=== PATIENT | female | born 1935 | race Caucasian/White ===

== ENCOUNTER 2018-12-24 04:46 | Inpatient (IN) ==
[2018-12-24 05:51] LABS: Basophils # 0.1 K/mcL (0.0-0.2); Basophils % 0.9 %; Eosinophils # 0.1 K/mcL (0.0-0.6); Eosinophils % 1.4 %; Hematocrit 43.3 % (35.3-44.9); Hemoglobin 14.6 g/dL (11.5-15.4); Immature Granulocytes % 0.4 % (0-4); Lymphocytes # 3.8 K/mcL (0.6-4.6); Lymphocytes % 39.1 %; Mean Corpuscular HGB Conc 33.7 g/dL (31.6-35.5); Mean Corpuscular Hemoglobin 28.9 pg (28.0-33.3); Mean Corpuscular Volume 85.7 fL (83.0-100.0); Mean Platelet Volume 11.4 fL (9.4-12.4); Monocytes # 0.7 K/mcL (0.0-1.3); Monocytes % 7.5 %; Platelet Count 272 K/mcL (140-400); Red Blood Count 5.05 M/mcL (3.82-4.97); Red Cell Distribution Width 14.5 % (11.5-14.5); Segmented Neutrophils % 50.7 %; White Blood Count 9.8 K/mcL (4.3-11.1)
[2018-12-24 06:14] LABS: Acetaminophen < 10 mcg/mL (10-20); BUN/Creatinine Ratio 22 (6-26); Blood Urea Nitrogen 24 mg/dL (8-23); Calcium 8.9 mg/dL (8.6-10.3); Carbon Dioxide 25 mEq/L (23-29); Chloride 109 mEq/L (98-107); Chol/HDL Ratio 3.1 (0-4.9); Cholesterol 195 mg/dL (< 200); Ethanol < 10 mg/dL (Less than 10); Glucose 162 mg/dL (70-105); HDL Cholesterol 63 mg/dL (40-59); LDL Cholesterol,Calculated 103 mg/dL (0-99); Osmolality,Calculated 306 (280-300); Potassium 3.8 mEq/L (3.5-5.1); Salicylate < 2.5 mg/dL (15.0-30.0); Sodium 144 mEq/L (136-145); Triglycerides 146 mg/dL (< 150); eGFR For African Americans 58 (> 60); eGFR For Non-African Americans 48 (> 60)
[2018-12-24 06:27] LABS: Estimated Average Glucose 183 mg/dl
[2018-12-24 06:31] LABS: Bilirubin,Urine Negative (Negative); Blood,Urine Negative (Negative); Clarity,Urine Clear (Clear); Color,Urine Yellow (Yellow); Glucose,Urine (UA) 100 mg/dL (Normal); Ketones,Urine Negative (Negative); Leukocyte Esterase,Urine Moderate (Negative); Nitrite,Urine Negative (Negative); PH,Urine 6.5 pH Units (5.0-8.0); Protein,Urine Negative (Neg-Trace); Specific Gravity,Urine 1.015 (1.010-1.025); Urobilinogen,Urine Normal (Normal)
[2018-12-24 06:35] LABS: Bacteria,Urine None Seen per hpf (None-Few); Hyaline Casts,Urine None Seen per lpf (None-Few); Squamous Epithelial Cell,Urine Many per lpf (None-Few); WBC,Urine 15-30 per hpf (0-3)
[2018-12-24 06:36] LABS: Amphetamine Screen,Urine Negative ng/mL (Cutoff=1000); Barbiturate Screen,Urine Negative ng/mL (Cutoff=200); Benzodiazepines Screen,Urine Negative ng/mL (Cutoff=200); Cannabinoid Screen,Urine Negative ng/mL (Cutoff = 50); Cocaine Screen,Urine Negative ng/mL (Cutoff= 300); Opiate Screen,Urine Negative ng/mL (Cutoff=300); Phencyclidine Screen,Urine Negative ng/mL (Cutoff=25)
[2018-12-24] MEDS ORDERED: cephALEXin 500 MG CAPSULE PO ONE (07:22)
[2018-12-24 09:14] LABS: Troponin I 1.13 ng/mL (< 0.04)
[2018-12-24 10:04] LABS: INR 0.9; Prothrombin Time 10.7 Seconds (9.4-12.1)
[2018-12-24 10:07] LABS: Activated Partial Thrombo Time 32.1 Seconds (26.0-36.0)
[2018-12-24] MEDS ORDERED: Heparin 25,000 UNIT/250 ML D5W 25,000 UNIT/250 ML IV.SOLN IVC SCH (10:45)
[2018-12-24] MEDS ORDERED: *HR* Heparin 5,000 UNIT/ML VIAL IVP ONE (10:45)
[2018-12-24] MEDS ORDERED: *HR* Heparin 5,000 UNIT/ML VIAL IVP PRN ×2 (10:45)
[2018-12-24] MEDS ORDERED: Acetaminophen 325 MG TABLET PO PRN (10:48)
[2018-12-24] MEDS ORDERED: Ondansetron 4 MG/2 ML VIAL IVP PRN (10:48)
[2018-12-24] MEDS ORDERED: Naloxone 0.4 MG/ML INJ IVP PRN (10:48)
[2018-12-24] MEDS ORDERED: *HR* Dextrose 50 % in Water (Syg) 50 ML SYRINGE IVP PRN (10:48)
[2018-12-24] MEDS ORDERED: Dextrose Gel 15 GM/37.5 ML TUBE PO PRN ×2 (10:48)
[2018-12-24] MEDS ORDERED: D5% in Water 1,000 ML IVC PRN (10:48)
[2018-12-24] MEDS ORDERED: Aspirin 325 MG TABLET PO ONE (12:15)
[2018-12-24] MEDS ORDERED: *HR* LORazepam 2 MG/ML VIAL IVP STA (12:36)
[2018-12-24] MEDS: Insulin LISPRO 300 UNITS/3 ML VIAL SQ SCH ×3 (12:50→20:52)
[2018-12-24] MEDS ORDERED: *HR* LORazepam 2 MG/ML VIAL IVP PRN (15:33)
[2018-12-24 17:01] LABS: Hemoglobin 13.6 g/dL (11.5-15.4); Mean Corpuscular HGB Conc 32.4 g/dL (31.6-35.5); Mean Corpuscular Hemoglobin 28.6 pg (28.0-33.3); Mean Corpuscular Volume 88.4 fL (83.0-100.0); Mean Platelet Volume 11.6 fL (9.4-12.4); Platelet Count 235 K/mcL (140-400); Red Blood Count 4.75 M/mcL (3.82-4.97); Red Cell Distribution Width 14.1 % (11.5-14.5); White Blood Count 10.3 K/mcL (4.3-11.1)
[2018-12-24] MEDS ORDERED: Dexmedetomidine HCl 400 MCG/100 ML MLS IVC SCH (17:15)
[2018-12-24] MEDS: cefTRIAXone 1,000 MG in Water for inj. (sterile) 10 ML IVP SCH (17:35)
[2018-12-24] MEDS: Doxycycline 100 MG in 0.9 % Sodium Chloride Mini Bag 100 ML IVPB SCH ×2 (17:35→19:25)
[2018-12-25 05:28] LABS: BUN/Creatinine Ratio 26 (6-26); Blood Urea Nitrogen 26 mg/dL (8-23); Calcium 8.7 mg/dL (8.6-10.3); Carbon Dioxide 17 mEq/L (23-29); Chloride 109 mEq/L (98-107); Glucose 203 mg/dL (70-105); Magnesium 1.6 mg/dL (1.6-2.6); Osmolality,Calculated 295 (280-300); Potassium 3.6 mEq/L (3.5-5.1); Sodium 137 mEq/L (136-145); eGFR For African Americans > 60 (> 60); eGFR For Non-African Americans 53 (> 60)
[2018-12-25] MEDS: Doxycycline 100 MG in 0.9 % Sodium Chloride Mini Bag 100 ML IVPB SCH ×2 (05:59→17:07)
[2018-12-25 06:47] LABS: Basophils # 0.1 K/mcL (0.0-0.2); Basophils % 0.6 %; Hematocrit 45.2 % (35.3-44.9); Hemoglobin 14.1 g/dL (11.5-15.4); Immature Granulocytes % 0.5 % (0-4); Lymphocytes # 2.2 K/mcL (0.6-4.6); Lymphocytes % 16.5 %; Mean Corpuscular HGB Conc 31.2 g/dL (31.6-35.5); Mean Corpuscular Volume 89.7 fL (83.0-100.0); Mean Platelet Volume 11.2 fL (9.4-12.4); Monocytes # 0.8 K/mcL (0.0-1.3); Monocytes % 6.3 %; Platelet Count 252 K/mcL (140-400); Red Blood Count 5.04 M/mcL (3.82-4.97); Red Cell Distribution Width 14.3 % (11.5-14.5); Segmented Neutrophils % 76.1 %; White Blood Count 13.1 K/mcL (4.3-11.1)
[2018-12-25] MEDS: *HR* LORazepam 2 MG/ML VIAL IVP PRN ×2 (06:57→22:18)
[2018-12-25] MEDS ORDERED: Perflutren Lipid Microsphere 1.3 ML in 0.9 % Sodium Chloride 8.7 ML IVP ONE (07:50)
[2018-12-25] MEDS ORDERED: Perflutren Lipid Microsphere 2 ML VIAL ONE (07:55)
[2018-12-25] MEDS: Insulin LISPRO 300 UNITS/3 ML VIAL SQ SCH ×5 (08:32→21:33)
[2018-12-25] MEDS: Aspirin Enteric Coated 81 MG Tablet PO SCH (08:48)
[2018-12-25] MEDS: cefTRIAXone 1,000 MG in Water for inj. (sterile) 10 ML IVP SCH (08:48)
[2018-12-25] MEDS ORDERED: Aspirin 325 MG TABLET PO SCH (09:00)
[2018-12-25] MEDS ORDERED: Dexmedetomidine HCl 400 MCG/100 ML MLS IVC SCH (14:00)
[2018-12-25] MEDS: *HR* Enoxaparin 60 MG/0.6 ML SYRINGE SQ SCH ×2 (14:12→21:33)
[2018-12-26 02:06] LABS: Basophils # 0.1 K/mcL (0.0-0.2); Basophils % 0.7 %; Hematocrit 40.4 % (35.3-44.9); Immature Granulocytes % 0.5 % (0-4); Lymphocytes # 2.1 K/mcL (0.6-4.6); Lymphocytes % 22.1 %; Mean Corpuscular HGB Conc 32.2 g/dL (31.6-35.5); Mean Corpuscular Hemoglobin 28.4 pg (28.0-33.3); Mean Corpuscular Volume 88.2 fL (83.0-100.0); Mean Platelet Volume 12.4 fL (9.4-12.4); Monocytes # 0.8 K/mcL (0.0-1.3); Monocytes % 8.7 %; Neutrophils # 6.4 K/mcL (1.6-8.9); Platelet Count 220 K/mcL (140-400); Red Blood Count 4.58 M/mcL (3.82-4.97); Red Cell Distribution Width 14.6 % (11.5-14.5); White Blood Count 9.4 K/mcL (4.3-11.1)
[2018-12-26 02:22] LABS: Calcium 8.5 mg/dL (8.6-10.3); Potassium 3.4 mEq/L (3.5-5.1)
[2018-12-26] MEDS ORDERED: *HR* Metoprolol 5 MG/5 ML VIAL IVP ONE ×3 (05:36→13:01)
[2018-12-26] MEDS ORDERED: 0.9 % Sodium Chloride 250 ML IVC SCH (05:45)
[2018-12-26 06:04] LABS: ABG Base Excess -4 mEq/L (-2 to 3); ABG HCO3 19 mEq/L (21-27); ABG Oxygen Saturation 96 % (95-98); ABG PCO2 28 mmHg (35-45); ABG PH 7.43 pH Units (7.32-7.45); ABG PO2 80 mmHg (85-104); ABG TCO2 20 mEq/L (20-26)
[2018-12-26] MEDS: Doxycycline 100 MG in 0.9 % Sodium Chloride Mini Bag 100 ML IVPB SCH ×2 (06:04→16:33)
[2018-12-26] MEDS: *HR* Enoxaparin 60 MG/0.6 ML SYRINGE SQ SCH ×2 (06:05→16:34)
[2018-12-26] MEDS ORDERED: Calcium Gluconate 1gm/50mL 1 GM/50 ML BAG IVPB ONE (06:30)
[2018-12-26 06:34] LABS: Basophils # 0.1 K/mcL (0.0-0.2); Basophils % 0.6 %; Eosinophils % 0.1 %; Hemoglobin 13.6 g/dL (11.5-15.4); Immature Granulocytes % 0.6 % (0-4); Lymphocytes # 3.6 K/mcL (0.6-4.6); Lymphocytes % 30.4 %; Mean Corpuscular HGB Conc 31.6 g/dL (31.6-35.5); Mean Corpuscular Hemoglobin 28.3 pg (28.0-33.3); Mean Corpuscular Volume 89.4 fL (83.0-100.0); Mean Platelet Volume 12.3 fL (9.4-12.4); Monocytes # 0.8 K/mcL (0.0-1.3); Monocytes % 6.7 %; Neutrophils # 7.2 K/mcL (1.6-8.9); Platelet Count 252 K/mcL (140-400); Red Blood Count 4.81 M/mcL (3.82-4.97); Red Cell Distribution Width 14.6 % (11.5-14.5); Segmented Neutrophils % 61.6 %; White Blood Count 11.7 K/mcL (4.3-11.1)
[2018-12-26 07:03] LABS: Albumin 3.6 g/dL (3.5-5.7); Albumin/Globulin Ratio 1.4 (1.1-2.2); Bilirubin,Total 1.8 mg/dL (0.3-1.0); Calcium 8.9 mg/dL (8.6-10.3); Globulin 2.5 g/dL (2.4-3.5); Magnesium 1.7 mg/dL (1.6-2.6); Phosphorous 3.3 mg/dL (2.7-4.5); Potassium 3.2 mEq/L (3.5-5.1); Total Protein 6.1 g/dL (6.4-8.9); Troponin I 3.93 ng/mL (< 0.04)
[2018-12-26 07:17] LABS: Thyroid Stimulating Hormone 2.122 mcIU/mL (0.340-5.600)
[2018-12-26] MEDS ORDERED: Potassium Chloride Elixir 20 MEQ/15 ML UDC PO ONE (07:20)
[2018-12-26] MEDS: Aspirin Enteric Coated 81 MG Tablet PO SCH (07:53)
[2018-12-26] MEDS: cefTRIAXone 1,000 MG in Water for inj. (sterile) 10 ML IVP SCH (07:54)
[2018-12-26] MEDS ORDERED: 0.9 % Sodium Chloride 1,000 ML IVC SCH ×2 (08:00)
[2018-12-26] MEDS: Insulin LISPRO 300 UNITS/3 ML VIAL SQ SCH ×3 (08:00→16:36)
[2018-12-26] MEDS ORDERED: Haloperidol Lactate 5 MG/ML VIAL IVP ONE (09:14)
[2018-12-26] MEDS ORDERED: Furosemide 20 MG/2 ML VIAL IVP ONE (10:20)
[2018-12-26] MEDS: *HR* LORazepam 2 MG/ML VIAL IVP PRN (11:44)
[2018-12-26] MEDS ORDERED: *HR* Metoprolol 5 MG/5 ML VIAL IVP PRN ×2 (12:26→13:47)
[2018-12-26] MEDS: Haloperidol Lactate 5 MG/ML VIAL IVP PRN (21:17)
[2018-12-27 03:53] LABS: Basophils # 0.1 K/mcL (0.0-0.2); Basophils % 0.4 %; Hematocrit 38.4 % (35.3-44.9); Hemoglobin 12.6 g/dL (11.5-15.4); Immature Granulocytes % 0.7 % (0-4); Lymphocytes # 2.8 K/mcL (0.6-4.6); Mean Corpuscular HGB Conc 32.8 g/dL (31.6-35.5); Mean Corpuscular Hemoglobin 28.4 pg (28.0-33.3); Mean Corpuscular Volume 86.7 fL (83.0-100.0); Mean Platelet Volume 12.1 fL (9.4-12.4); Monocytes # 0.8 K/mcL (0.0-1.3); Monocytes % 5.6 %; Neutrophils # 9.7 K/mcL (1.6-8.9); Platelet Count 218 K/mcL (140-400); Red Blood Count 4.43 M/mcL (3.82-4.97); Segmented Neutrophils % 72.3 %; White Blood Count 13.4 K/mcL (4.3-11.1)
[2018-12-27 04:01] LABS: Calcium 8.5 mg/dL (8.6-10.3)
[2018-12-27] MEDS: Doxycycline 100 MG in 0.9 % Sodium Chloride Mini Bag 100 ML IVPB SCH ×2 (05:44→18:01)
[2018-12-27] MEDS: *HR* Enoxaparin 60 MG/0.6 ML SYRINGE SQ SCH ×2 (05:46→18:01)
[2018-12-27] MEDS ORDERED: amLODIPine 5 MG TABLET PO SCH (09:00)
[2018-12-27] MEDS: cefTRIAXone 1,000 MG in Water for inj. (sterile) 10 ML IVP SCH (09:23)
[2018-12-27] MEDS: Aspirin Enteric Coated 81 MG Tablet PO SCH (09:24)
[2018-12-27] MEDS: Insulin LISPRO 300 UNITS/3 ML VIAL SQ SCH ×5 (09:24→20:24)
[2018-12-27] MEDS ORDERED: E-Z-HD (BARIUM SULF) SUSPENSION PO ONE (12:39)
[2018-12-27] MEDS ORDERED: E-Z-PAQUE (BARIUM SULF) SUSP 1 BOTTLE PO ONE (12:39)
[2018-12-27] MEDS: *HR* Metoprolol 5 MG/5 ML VIAL IVP SCH (19:10)
[2018-12-28] MEDS: Haloperidol Lactate 5 MG/ML VIAL IVP PRN (00:22)
[2018-12-28] MEDS: *HR* Metoprolol 5 MG/5 ML VIAL IVP SCH ×2 (01:20→01:47)
[2018-12-28] MEDS ORDERED: *HR* Metoprolol 5 MG/5 ML VIAL IVP ONE ×2 (01:38→22:28)
[2018-12-28] MEDS ORDERED: Amiodarone Premix 150 MG/100 ML BAG IVPB ONE ×2 (02:31→02:38)
[2018-12-28] MEDS ORDERED: Dextrose Gel 15 GM/37.5 ML TUBE PO PRN ×2 (02:38)
[2018-12-28] MEDS ORDERED: D5% in Water 1,000 ML IVC PRN (02:38)
[2018-12-28] MEDS ORDERED: *HR* Dextrose 50 % in Water (Syg) 50 ML SYRINGE IVP PRN (02:38)
[2018-12-28] MEDS ORDERED: Acetaminophen 325 MG TABLET PO PRN (02:38)
[2018-12-28] MEDS ORDERED: Amiodarone Premix 360 MG/200 ML BAG IVC ONE ×2 (02:38→03:00)
[2018-12-28] MEDS ORDERED: Naloxone 0.4 MG/ML INJ IVP PRN (02:38)
[2018-12-28] MEDS ORDERED: Amiodarone Premix 360 MG/200 ML BAG IVC SCH ×2 (02:45→09:00)
[2018-12-28 04:00] LABS: Basophils # 0.1 K/mcL (0.0-0.2); Basophils % 0.4 %; Hematocrit 37.6 % (35.3-44.9); Hemoglobin 12.4 g/dL (11.5-15.4); Immature Granulocytes % 0.6 % (0-4); Lymphocytes # 2.1 K/mcL (0.6-4.6); Lymphocytes % 17.5 %; Mean Corpuscular Hemoglobin 28.3 pg (28.0-33.3); Mean Corpuscular Volume 85.8 fL (83.0-100.0); Mean Platelet Volume 12.2 fL (9.4-12.4); Monocytes # 0.7 K/mcL (0.0-1.3); Monocytes % 6.3 %; Neutrophils # 8.8 K/mcL (1.6-8.9); Platelet Count 204 K/mcL (140-400); Red Blood Count 4.38 M/mcL (3.82-4.97); Red Cell Distribution Width 15.1 % (11.5-14.5); Segmented Neutrophils % 75.2 %; White Blood Count 11.7 K/mcL (4.3-11.1)
[2018-12-28] MEDS ORDERED: Melatonin 3 MG TABLET PO ONE (04:09)
[2018-12-28 04:22] LABS: Calcium 8.5 mg/dL (8.6-10.3); Potassium 3.8 mEq/L (3.5-5.1)
[2018-12-28] MEDS: Doxycycline 100 MG in 0.9 % Sodium Chloride Mini Bag 100 ML IVPB SCH ×2 (05:09→17:38)
[2018-12-28] MEDS: *HR* Enoxaparin 60 MG/0.6 ML SYRINGE SQ SCH ×2 (05:09→17:39)
[2018-12-28] MEDS: cefTRIAXone 1,000 MG in Water for inj. (sterile) 10 ML IVP SCH (08:48)
[2018-12-28] MEDS: amLODIPine 5 MG TABLET PO SCH (08:49)
[2018-12-28] MEDS: Insulin LISPRO 300 UNITS/3 ML VIAL SQ SCH ×4 (08:50→22:04)
[2018-12-28] MEDS: Aspirin Enteric Coated 81 MG Tablet PO SCH (08:50)
[2018-12-28] MEDS ORDERED: *HR* Metoprolol 5 MG/5 ML VIAL IVP SCH (12:00)
[2018-12-28] MEDS ORDERED: *HR* Metoprolol 5 MG/5 ML VIAL IVP PRN (12:57)
[2018-12-28] MEDS ORDERED: Insulin LISPRO 300 UNITS/3 ML VIAL SQ SCH (21:00)
[2018-12-29 04:32] LABS: Basophils % 0.2 %; Eosinophils % 0.1 %; Hematocrit 36.7 % (35.3-44.9); Hemoglobin 11.8 g/dL (11.5-15.4); Immature Granulocytes % 0.8 % (0-4); Lymphocytes % 16.8 %; Mean Corpuscular HGB Conc 32.2 g/dL (31.6-35.5); Mean Corpuscular Hemoglobin 28.6 pg (28.0-33.3); Mean Corpuscular Volume 89.1 fL (83.0-100.0); Mean Platelet Volume 11.8 fL (9.4-12.4); Monocytes # 0.9 K/mcL (0.0-1.3); Monocytes % 7.6 %; Neutrophils # 9.1 K/mcL (1.6-8.9); Platelet Count 196 K/mcL (140-400); Red Blood Count 4.12 M/mcL (3.82-4.97); Red Cell Distribution Width 15.3 % (11.5-14.5); Segmented Neutrophils % 74.5 %; White Blood Count 12.2 K/mcL (4.3-11.1)
[2018-12-29 04:52] LABS: Calcium 8.6 mg/dL (8.6-10.3); Potassium 3.5 mEq/L (3.5-5.1)
[2018-12-29] MEDS ORDERED: Ondansetron 4 MG/2 ML VIAL IVP ONE (06:42)
[2018-12-29] MEDS: Doxycycline 100 MG in 0.9 % Sodium Chloride Mini Bag 100 ML IVPB SCH ×2 (06:45→17:54)
[2018-12-29] MEDS: *HR* Enoxaparin 60 MG/0.6 ML SYRINGE SQ SCH ×2 (06:45→17:54)
[2018-12-29] MEDS: Insulin LISPRO 300 UNITS/3 ML VIAL SQ SCH ×4 (08:17→21:05)
[2018-12-29] MEDS: cefTRIAXone 1,000 MG in Water for inj. (sterile) 10 ML IVP SCH (10:19)
[2018-12-29] MEDS: amLODIPine 5 MG TABLET PO SCH (10:21)
[2018-12-29] MEDS: Aspirin Enteric Coated 81 MG Tablet PO SCH (10:21)
[2018-12-29] MEDS: Insulin DETEMIR 100 UNIT/ML X5UNITS SQ SCH (21:05)
[2018-12-30] MEDS: *HR* Enoxaparin 60 MG/0.6 ML SYRINGE SQ SCH (04:45)
[2018-12-30] MEDS: Doxycycline 100 MG in 0.9 % Sodium Chloride Mini Bag 100 ML IVPB SCH (05:43)
[2018-12-30] MEDS: Insulin LISPRO 300 UNITS/3 ML VIAL SQ SCH ×4 (08:37→21:24)
[2018-12-30] MEDS: Aspirin Enteric Coated 81 MG Tablet PO SCH ×4 (09:57→12:42)
[2018-12-30] MEDS: amLODIPine 5 MG TABLET PO SCH ×3 (09:57→12:26)
[2018-12-30] MEDS: cefTRIAXone 1,000 MG in Water for inj. (sterile) 10 ML IVP SCH (09:58)
[2018-12-30] MEDS: Insulin DETEMIR 100 UNIT/ML X5UNITS SQ SCH (20:45)
[2018-12-31 04:27] LABS: Basophils % 0.2 %; Eosinophils # 0.1 K/mcL (0.0-0.6); Eosinophils % 0.6 %; Hematocrit 35.5 % (35.3-44.9); Hemoglobin 11.3 g/dL (11.5-15.4); Immature Granulocytes % 0.6 % (0-4); Lymphocytes # 2.3 K/mcL (0.6-4.6); Lymphocytes % 26.2 %; Mean Corpuscular HGB Conc 31.8 g/dL (31.6-35.5); Mean Corpuscular Hemoglobin 28.3 pg (28.0-33.3); Mean Platelet Volume 12.5 fL (9.4-12.4); Monocytes # 0.8 K/mcL (0.0-1.3); Monocytes % 9.3 %; Neutrophils # 5.6 K/mcL (1.6-8.9); Platelet Count 177 K/mcL (140-400); Red Blood Count 3.99 M/mcL (3.82-4.97); Red Cell Distribution Width 15.3 % (11.5-14.5); Segmented Neutrophils % 63.1 %; White Blood Count 8.9 K/mcL (4.3-11.1)
[2018-12-31 04:45] LABS: Calcium 8.2 mg/dL (8.6-10.3); Potassium 3.4 mEq/L (3.5-5.1)
[2018-12-31] MEDS: amLODIPine 5 MG TABLET PO SCH (08:15)
[2018-12-31] MEDS: Aspirin Enteric Coated 81 MG Tablet PO SCH (08:16)
[2018-12-31] MEDS: Insulin LISPRO 300 UNITS/3 ML VIAL SQ SCH ×4 (08:20→21:57)
[2018-12-31] MEDS ORDERED: *HR* Enoxaparin 60 MG/0.6 ML SYRINGE SQ SCH (09:00)
[2018-12-31] MEDS ORDERED: Potassium Chloride Elixir 20 MEQ/15 ML UDC PO ONE (11:31)
[2018-12-31] MEDS: *HR* Enoxaparin 60 MG/0.6 ML SYRINGE SQ SCH (18:14)
[2018-12-31] MEDS: Insulin DETEMIR 100 UNIT/ML X5UNITS SQ SCH (21:57)
[2019-01-01] MEDS: *HR* Enoxaparin 60 MG/0.6 ML SYRINGE SQ SCH ×2 (05:41→16:47)
[2019-01-01] MEDS: Insulin LISPRO 300 UNITS/3 ML VIAL SQ SCH ×4 (08:40→21:28)
[2019-01-01] MEDS: Aspirin 81 MG TAB.CHEW PO SCH (08:45)
[2019-01-01] MEDS: amLODIPine 5 MG TABLET PO SCH (08:45)
[2019-01-01] MEDS: *HR* LORazepam 2 MG/ML VIAL IVP PRN ×2 (09:36→16:47)
[2019-01-02] MEDS: *HR* Enoxaparin 60 MG/0.6 ML SYRINGE SQ SCH (05:54)
[2019-01-02] MEDS: Aspirin 81 MG TAB.CHEW PO SCH (08:44)
[2019-01-02] MEDS: Insulin LISPRO 300 UNITS/3 ML VIAL SQ SCH ×2 (08:45→12:45)
[2019-01-02] MEDS ORDERED: amLODIPine 5 MG TABLET PO SCH ×2 (09:00)
[2019-01-02 12:03] VITALS: BP 150/54
== END 2019-01-02 16:42 | disposition home or self-care (01) | DRG 280 ==
LOC: EMEROOARM 04:46 → CDU 04:46 → SUATTDRO 10:32 → CDU 11:40 → 2NENU 15:00 → 2NNU 18:33 → SUATTDRO 12-25 14:13 → 3ANU 12-27 09:30
PROVIDERS: ADMIT Student in an Organized Health Care Education/Training Program; ATTEND Family Medicine